=== PATIENT | male | born 1970 | race Caucasian/White ===

== ENCOUNTER 2018-06-27 02:02 | Observation (INO) | payer SELFPAY ==
[2018-06-27] MEDS ORDERED: Nitroglycerin 2% Ointment 1 INCH/1 GM Packet ONE (02:37)
[2018-06-27] MEDS ORDERED: Labetalol HCl 100 MG/20 ML VIAL ONE ×2 (02:42→03:18)
--- NOTE | 2018-06-27 03:34 | PDOC.FPRHP ---
- History of Present Illness Chief Complaint: headache, chest pain, high blood pressure History of Present Illness: 48 yo M transfer from [facility] ED with PMH of HTN, DM2, and noncompliance on multiple anti-hypertensives presents for headache, chest pain, and elevated BP. Pt reports he has not been taking his medications because he has difficulty affording them, and was saving them for an "as needed" basis. He reports he checked his BP 2 days ago at the store, and it was elevated to 225/ 170. He then reports he checked it at home, and his home BP was 228/130. He developed a headache yesterday afternoon while kids were fighting that started in his posterior head, then moved to his presybeterian and behind his eyes. Soon after he had about a 30 minute episode of left sided chest pressure that slowly radiated to his shoulder while sitting down around 4 PM. He was concerned, so he went to the ED for evaluation. Headache and chest pain are now resolved. Reports recent episode of loose stools (his normal), recent weight loss of 25 lbs due to diet changes, and chronic low back pain. SCED: SBP initially 230s. EKG NSR, CT head neg and CXR no acute process, official reads pending. Trop neg. ED: nitro bid, labetolol. 2nd Trop neg. Headache and chest pain resolved. BP 173 /100. - Allergies/Adverse Reactions Allergies Allergy/AdvReac Type Severity Reaction Status Date / Time No Known Drug Allergies Allergy Verified 06/27/18 04:29 - Home Medications Medication Instructions Recorded Confirmed Type Acetaminophen [Tylenol Regular 650 mg PO Q6H PRN tab 06/27/18 Rx Strength] Amlodipine [Norvasc] 10 mg PO DAILY #30 tab 06/27/18 Rx Atorvastatin Calcium 40 mg PO QPM 06/27/18 06/27/18 History DULoxetine [Cymbalta] 60 mg PO DAILY 06/27/18 06/27/18 History Gemfibrozil 600 mg PO BID-AC 06/27/18 06/27/18 History Labetalol HCl 200 mg PO BID 06/27/18 06/27/18 History Lisinopril [Prinivil] 20 mg PO QPM #30 tablet 06/27/18 Rx Lisinopril/Hydrochlorothiazide 1 tablet PO QAM 06/27/18 06/27/18 History [Lisinopril-Hctz 20-25 mg Tab] Omeprazole 40 mg PO DAILY 06/27/18 06/27/18 History metFORMIN [Glucophage] 1,000 mg PO BID-WM #60 tab 06/27/18 Rx - History PMHx: DM2, HTN, GERD, HLD; hx of pericarditis and pancreatitis (x2) PSHx: appy, cholecystectomy, R knee, neck, and low back surgery FHx: ME in pGF; melanoma in mother; mGF liver cancer, mGM cancer unknown type Social: smoked 2 ppd for 11 yrs, now last 6 mos 1/2 ppd. 22 PY hx; alcohol < once monthly, however twice yearly he binge drinks; denies drug use. Recent stressors include a divorce/separation, moving locations. - Review of Systems General: reports: weight/appetite/sleep changes (weight loss over last couple months, due to diet changes). denies: fever/chills, night sweats Eyes: reports: eye pain. denies: vision changes ENT: denies: nasal congestion, rhinorrhea Respiratory: denies: cough, congestion, shortness of breath Cardiovascular: reports: chest pain. denies: palpitation Gastrointestinal: denies: nausea, vomiting, diarrhea, constipation, abdominal pain, GI bleeding Genitourinary: denies: dysuria, other (hematuria) Skin: denies: rashes, lesions Musculoskeletal: reports: pain (chronic back pain) Neurological: reports: numbness (reports maybe some face tingling with the headache). denies: weakness Psychological: denies: anxiety, depression - Vital signs BP: [173/100] HR: [68] RR: [12] Tmax: [97.7] Pox: [97]% on [RA] Wt: [98.3 kg] - Physical Exam Constitutional: NAD, awake, alert and oriented HEENT: normocephalic and atraumatic, PERRLA, EOMI, conjunctiva clear, grossly normal hearing, MMM, oropharynx clear Neck: supple, no LAD Chest: no-tender to palpation, no lesions Heart: RRR, normal S1/S2, pulses present, no edema, other (1/6 systolic murmur, heard loudest at the apex) Lungs: CTAB, no respiratory distress, good air movement, no wheezing Abdomen: soft, non-tender, bowel sounds present, no masses/distention Musculoskeletal: normal structure, normal tone Neurological: no focal deficit, CN II-XII intact, normal sensation Skin: no rash/lesions, good turgor, capillary refill <2 seconds Heme/Lymphatic: no unusual bruising or bleeding, no purpura Psychiatric: normal mood and affect, intact recent and remote memory FMR H&P: Results - Labs Result Diagrams: 06/27/18 07:17 - EKG Interpretation EKG: NSR - Radiology Interpretation Chest x-ray Status: image reviewed by me Additional comment: no acute process. official read pending. CT scan - head Status: image reviewed by me Additional comment: No acute bleeds. official read pending. FMR H&P: A/P - Problem List (1) Noncompliance Current Visit: Yes Status: Acute Code(s): Z91.19 - PATIENT'S NONCOMPLIANCE W OTH MEDICAL TREATMENT AND REGIMEN (2) Hypertensive urgency Current Visit: Yes Status: Acute Code(s): I16.0 - HYPERTENSIVE URGENCY (3) GERD (gastroesophageal reflux disease) Current Visit: Yes Status: Chronic Code(s): K21.9 - GASTRO-ESOPHAGEAL REFLUX DISEASE WITHOUT ESOPHAGITIS (4) DM2 (diabetes mellitus, type 2) Current Visit: Yes Status: Chronic (5) HLD (hyperlipidemia) Current Visit: Yes Status: Chronic Code(s): E78.5 - HYPERLIPIDEMIA, UNSPECIFIED (6) HTN (hypertension) Current Visit: Yes Status: Chronic Code(s): I10 - ESSENTIAL (PRIMARY) HYPERTENSION - Plan Hypertensive Urgency, improving -Last BP 173/100, down from 230s. -CT head neg, CXR no acute process. Official reads pending. -Headache/ chest pain resolved. -Headache sounded like typical tension headache. May be secondary to stressors, reports kids were fighting at onset. -Chest pain atypical, as nonexertional. Trop neg x2. May be secondary to stressors. -restarted home medications, held labetolol as just received IV dose in ED -Pt interested in following up at [facility], where he can get cheaper medications. Reports he has difficulty affording his meds, which cost him about $125/month. -Case management consulted DM2 -noncompliant with medications -restart home metformin -SSI -A1C pending Chronic low back pain -1x dose Flexeril Potential for drug abuse -Pt asked for soma/norco by name -UDS pending HLD -restarted home atorvastatin and gemfibrozil GERD -restart home omeprazole Medication Noncompliance Dispo: admit to tele obs Diet: HH DVT ppx: SCDs GI ppx: home omeprazole PCP: Dr. Dominick Biggs in [place]. Pt may want to establish somewhere closer , he is undecided. FMR H&P: Upper Level - Pertinent history 48 y/o M with hx/o uncontroled HTN, DM2, HLD presents from [facility] for HTN and chest pain. Hypertension was as high as 23 range systolic and initially presented with TREVINO and photophobia. Chest pain described as left sided radiating into shoulder, sharp and has improved. Associated photophobia and TREVINO resolved. Pt has not been taking BP medications 2/2 cost and has a longstanding history of HTN, even undergoing at least a partial secondary w/u in 2015 per patient. He also admit s to chronic back pain which is hurting a the moment. Pt has been given antihypertensive medications which have improved pressures to 175 systolic at time of exam, just prior to Labetaol administration. He has recently moved to [place] and not followed closely with a PCP. currently complains of back pain and mild L chest pain. Troponins have been neg x2 and no EKG changes at OSH. - Pertinent findings Toponins neg x2, no EKG changes. CXR unremarkable. - Plan Date/Time: 06/27/18 0330 IDaniel, have evaluated this patient and agree with findings/plan as outlined by consumer insights intern resident. Pertinent changes/additions are listed here. 48 y/o F admitted for hypertensive urgency and BP control 1. Hypertensive Urgency: has improved. Will resume home medications and monitor closely. Expect this to be therapeutic as he has not been taking them. counseling provided that medications should be used as preventative instead of as needed use. Labetalol given IV and plan to restart PO home dose tomorrow. Also likely contributing to his chest pain. 2. Atypical chest pain - trops negx2, no EKG changes. S/p nitro patch. POssibly 2/2 HTN or consider additional etiologies. 3. Systolic Heart Murmur: Consider evaluation with ECHO, but ok to pursue this in the outpatient setting in my opinion as he does not seem to be having symptoms directly related to a slight murmur. 4. HLD - Consider statin use given risk factors. Calculate ASCVD risk once BP normalizes. Also consider FLP in vs outpatient. 5. DM2 - Presumed this is not under control either. Control with SSI and resume Metformin. Order A1c. 6. GERD - No acute issues; consider as cause for chest pain. 7. Chronic Back Pain - Muscle relaxer, states pain is same as it usually is. Full code, Dispo discharge in 1-2days on BP mediations Addendum - Attending - Attending Attestation Date/Time: 06/27/18 [id number] I personally evaluated the patient and discussed the management with Dr. Keith and Dr. Bautista I agree with the History, Examination, Assessment and Plan documented above with any addition or exceptions noted below. 48 yo male with history of HTN, HLD, DM, and GERD presents for evaluation of chest pain. Patient reports chest pain. Pressure type. Mid chest. At rest. Resolved with ER medications. Headache to posterior area. Progressed to frontal region. Improved with ER meds. Mild, dull headache this morning. No return of chest pain. VS reviewed. Labs reviewed. Imaging reviewed. Agree with PE documented as above. 1. HTN urgency: BP down by 25%. Continue to slowly adjust BP meds for control. Longstanding HTN unsure compliance and control as outpatient. 2. Chest pain: Likely angina due to circumstances. Stress this AM. ECHO this afternoon. 3. HLD: Not at goal. Increase atorvastatin to 80 mg. Increase secondary agent as tolerated. Lifestyle changes. Needs PCP. 4. DM: A1c 6.6. Continue metformin. 5. GERD: Asymptomatic. 6. Financial issues: All meds from $4 list. Needs PCP. 7. Depression: On SSRI. 8. Nonprofessional tattoos: Check hep C [place]
[2018-06-27] MEDS ORDERED: hydrALAZINE 20 MG/ML VIAL SLOW IVP PRN ×2 (03:41→04:20)
[2018-06-27] MEDS ORDERED: Dextrose 5% in Water 1,000 ML IV PRN ×2 (03:44→04:20)
[2018-06-27] MEDS ORDERED: HumaLOG 300 UNITS/3 ML VIAL SC PRN ×2 (03:44→04:20)
[2018-06-27] MEDS ORDERED: Dextrose 50% Abboject 50 ML SYRINGE SLOW IVP PRN ×2 (03:44→04:20)
[2018-06-27] MEDS ORDERED: Cyclobenzaprine 10 MG TAB PO SCH ×2 (03:45→04:30)
[2018-06-27] MEDS ORDERED: Lisinopril/Hydrochlorothiazide 20/25 mg Tablet PO SCH ×4 (04:00→09:00)
[2018-06-27] MEDS ORDERED: Amlodipine 10 MG TAB PO SCH ×3 (04:00→09:00)
[2018-06-27 04:11] VITALS: BMI 28.3
[2018-06-27] MEDS ORDERED: Acetaminophen 325 MG TAB PO PRN (04:34)
[2018-06-27] MEDS ORDERED: Ibuprofen 800 MG TAB PO PRN (04:34)
[2018-06-27 06:58] LABS: Amphetamine Not Detected (NotDetected); Barbiturates Screen Not Detected (NotDetected); Benzodiazepine Screen Not Detected (NotDetected); Cocaine Metabolite Screen Not Detected (NotDetected); Medtox Control Line Valid? VALID (VALID); Medtox Reader # READER 4; Methadone Not Detected (NotDetected); Methamphetamine Not Detected (NotDetected); Opiate Screen Not Detected (NotDetected); Oxycodone Screen Not Detected (NotDetected); Phencyclidine (PCP) Not Detected (NotDetected); THC/Cannabinoid Screen Not Detected (NotDetected); Tricyclic Screen Not Detected (NotDetected)
[2018-06-27] MEDS ORDERED: Gemfibrozil 600 MG TAB PO SCH (07:30)
[2018-06-27 07:47] LABS: Hemoglobin A1c 6.6 % (4.0-6.0)
[2018-06-27 08:00] LABS: Anion Gap 16 mmol/L (10-20); BUN (Urea Nitrogen) 10 mg/dL (8.9-20.6); Calc. Creatinine Clearance 100 mL/min (70-130); Calcium 9.7 mg/dL (7.8-10.44); Carbon Dioxide 24 mmol/L (22-29); Chloride 98 mmol/L (98-107); Cholesterol 168 mg/dl (< 200 Desired); Estimated GFR-MDRD 61; Glucose 262 mg/dL (70-105); HDL Cholesterol 24 mg/dL (>60 Neg Risk); Potassium 3.2 mmol/L (3.5-5.1); Sodium 135 mmol/L (136-145); Triglycerides 584 mg/dL (Less than 150)
[2018-06-27] MEDS ORDERED: metFORMIN 500 MG TAB PO SCH ×2 (08:00)
[2018-06-27] MEDS: Gemfibrozil 600 MG TAB PO SCH ×2 (08:51→17:00)
[2018-06-27] MEDS: metFORMIN 500 MG TAB PO SCH ×2 (08:51→17:00)
[2018-06-27] MEDS ORDERED: DULoxetine 60 MG CAP PO SCH ×2 (09:00)
--- NOTE | 2018-06-27 13:47 | NM ---
CARDIAC SPECT: CLINICAL HISTORY: 48-year-old male with chest pain, hypertension, diabetes, smoker, and dyslipidemia. TECHNIQUE: A myocardial perfusion scan was performed using the single isotope one day protocol with technetium-9 9m sestamibi. 10 mCi were injected intravenously for the rest exam followed by 29 mCi for the stress exam. Pharmacologic stress with Adenosine was monitored and interpreted by Dr. Church. FINDINGS: Fairly homogeneous tracer distribution is seen in the myocardial segments on stress and rest images w ithout fixed or reversible defects. GATED SPECT LVEF: 38%. WALL MOTION EXAM: Global hypokinesis. IMPRESSION: No evidence of reversible ischemia. POS: TPC
[2018-06-27] MEDS ORDERED: ADENOSINE 60 MG/20 ML VIAL ONE (14:17)
[2018-06-27 15:34] VITALS: BP 162/88; TEMP 97.6
[2018-06-27] MEDS ORDERED: Potassium Chloride 20 MEQ TAB PO SCH (16:45)
[2018-06-27] MEDS ORDERED: Lisinopril 20 MG TAB PO SCH ×2 (21:00)
[2018-06-27] MEDS ORDERED: Atorvastatin Calcium 40 MG TAB PO SCH ×2 (21:00)
--- NOTE | 2018-06-27 23:54 | CON ---
DATE OF CONSULTATION: 06/27/2018 REASON FOR CONSULTATION: Chest pain. HISTORY OF PRESENT ILLNESS: Mr. Samuels is a 48-year-old gentleman, who said he recently moved to this area. He has a history of severely elevated blood pressures, but he said he had not refilled any of his blood pressure medicines and was not taking any of his medication. He came to the emergency room with a headache and blood pressure 225/170, came here, got his blood pressure down, began to feel better, and got evaluated that will be outlined below. He states he did have some vague discomfort in his chest when the blood pressure was extremely high. PAST MEDICAL HISTORY: 1. Uncontrolled hypertension. 2. Diabetes. 3. Smoking. 4. Hyperlipidemia, mixed. REVIEW OF SYSTEMS: CONSTITUTIONAL: No significant weight gain or loss. VISION: No changes. HEARING: No changes. PULMONARY: No cough or wheezing. GASTROINTESTINAL: No nausea, vomiting, or diarrhea. SKIN: No rashes. NEUROLOGIC: No unilateral weakness or numbness. PSYCHIATRIC: No unusual depression or anxiety. PHYSICAL EXAMINATION: VITAL SIGNS: The patient's blood pressure 162/88, pulse 64 and regular. LUNGS: Clear. CARDIAC: Normal S1, normal S2. ABDOMEN: Soft and nontender. EXTREMITIES: No clubbing or cyanosis. There is no edema. Good peripheral pulses. PERTINENT LABORATORY DATA: Glucose 214. Hemoglobin A1c 6.6. Triglycerides 584, cholesterol 168, LDL cannot be calculated. Potassium is 3.2. The nuclear medicine stress imaging showed no evidence of any ischemia, but it was thought to have a depressed left ventricular function with global hypokinesis. The echocardiogram through very good quality study shows normal left ventricular function with moderate left ventricular hypertrophy. I believe the ejection fraction in the nuclear imaging is artifactually low. The EKG, normal sinus rhythm, small Q-wave in lead 3, some nonspecific ST and T-wave changes. ASSESSMENT: 1. Severe hypertension with hypertensive heart disease with left ventricular hypertrophy. 2. Left atrial enlargement, likely related to chronic hypertension, uncontrolled. 3. Diabetes. 4. Continued smoking. 5. Hyperlipidemia, mixed. 6. Noncompliance of medication. I explained to the patient that he has really essentially every risk for coronary artery disease which is modifiable including hypertension, diabetes, smoking, hypercholesterolemia. I expressed the extreme importance of taking medicines as routine basis. The patient does not have any evidence of focal ischemia and the ejection fraction is normal on echocardiogram. As mentioned, the patient was SEVERELY HYPERTENSIVE on admission. He said he could not afford the medication. Discussed the [employer] marlene, which may help him get better drug prices and find more affordable locations. His family member downloaded this marlene while we were talking, said they would pursue this. At this time, medical therapy is appropriate. If he continues to have angina with blood pressures, catheterization could be considered, but at this point arteriogram would not appear to lower his risk of adverse events, especially in view of his history of noncompliance. The patient needs to demonstrate compliance with medication as initial strategy. Certainly it is regardless of our therapy, if his blood pressure remains in this range along with smoking, diabetes, hyperlipidemia, his prognosis will remain poor. Hopefully, the patient will make these changes. the critical importance of making these changes. Job ID: [id number]
--- NOTE | 2018-06-28 05:45 | DIS ---
DATE OF ADMISSION: 06/27/2018 DATE OF DISCHARGE: 06/27/2018 RESIDENT: Ronaldo Sinclair MD. CONSULTS: 1. [facility] on 06/27/2018. 2. Case Management on 06/27/2018. PROCEDURES: 1. Nuclear medicine stress test on 06/27/2018, gated SPECT LVEF 38%, wall motion exam, global hypokinesis. Impression, no evidence for reversible ischemia. 2. Echocardiogram on 06/27/2018, summary; left ventricular size is normal. Ejection fraction is visually estimated at 55% to 60%. There is mild concentric left ventricular hypertrophy. The left atrium is [id number] dilated. Mild mitral regurgitation is present. Structurally normal aortic valve with no significant stenosis or regurgitation. Trace tricuspid regurgitation. PRIMARY DIAGNOSES: 1. Hypertensive urgency. 2. Atypical chest pain. SECONDARY DIAGNOSES: 1. Hypertension. 2. Hyperlipidemia. 3. Type 2 diabetes. 4. Gastroesophageal reflux disease. 5. Medication noncompliance. DISCHARGE MEDICATIONS: Resume home medications includin. Omeprazole 40 mg p.o. daily. 2. Gemfibrozil 600 mg p.o. b.i.d. a.c. 3. Duloxetine 60 mg p.o. daily. 4. Atorvastatin 40 mg p.o. q.p.m. 5. Labetalol HCL 200 mg p.o. b.i.d. New home medications include: 1. Acetaminophen 650 mg q.6 hours p.r.n. 2. Amlodipine 10 mg p.o. daily. 3. Lisinopril/hydrochlorothiazide 20/12.5 one tablet p.o. q.p.m. 4. Metformin 1000 mg p.o. b.i.d. with meals. HISTORY OF PRESENT ILLNESS/HOSPITAL COURSE: Mr. Carlos Samuels Junior is a 48-year-old male with past medical history of hypertension, hyperlipidemia, and type 2 diabetes, who was transferred from [facility] to [place] for chest pain, headache, and elevated blood pressures. The patient reports he had not been taking his medications because he had difficulty affording those and will take them on an as-needed basis. He reports he checked his blood pressure 2 days ago at the store and it was 225/170. He also reported that he checks it at home, his blood pressure was 228/130 at that time. He developed a headache yesterday afternoon, which started in the posterior aspect of his head and moved to his temples and behind his eyes. Soon after that, he had about a 30-minute episode of left-sided chest pressure that radiated to his shoulder while sitting down on 4:00 p.m. He was concerned, so he went to the ED. He states that headache and chest pain were resolved upon admission. In [facility] ED, his systolic blood pressure was initially in the 230s. EKG showed normal sinus rhythm. CT of the head and chest x-ray showed no acute process. Initial troponin was negative. In the ED, he had nitroglycerin, labetalol and second troponin was negative. Blood pressure at [place] was 173/100, heart rate 68, respiratory rate 12, temperature 97.7, pulse ox 97% on room air. Current weight was 98.3 kg. Initial physical exam was significant for 1/6 systolic murmur heard loudest at the apex. Initial labs were sodium 135, potassium 3.2, chloride 98, bicarbonate 24, BUN 10, creatinine 1.27, glucose 262. EKG showed normal sinus rhythm with no ST changes. Chest x-ray showed no acute process. CT of the head showed no acute bleeds. The patient was admitted for hypertensive urgency. Home medications were resumed. Nuclear medicine stress test and echo were ordered. Troponins were negative x3. Results of nuclear medicine stress test and echo were as above. The stress test showed global hypokinesia. Dr. Church, who read the echo was consulted, and we discussed the case. Dr. Church felt that the stress test was not accurate. He stated that during the echo there was normal cardiac wall motion. There was no global hypokinesia and that the ejection fraction was actually around 55% to 60%, not the 38% that was shown on stress test. Dr. Church cleared the patient for discharge with instructions for close followup with better compliance of home blood pressure medications. The patient was discharged on 06/27/2018 with those instructions. DISPOSITION: Stable. The patient should do well if he is compliant with his home blood pressure medications and if he has close followup with primary care provider. DISCHARGE INSTRUCTIONS: 1. Location: Home. 2. Diet: Heart healthy and diabetic diet. 3. Activity: As tolerated. 4. Follow up with primary care provider within 1 week. Job ID: [id number]
[2018-06-28] MEDS ORDERED: Amlodipine 10 MG TAB PO SCH (09:00)
[2018-06-28] MEDS ORDERED: Lisinopril/Hydrochlorothiazide 20/25 mg Tablet PO SCH (09:00)
[2018-06-28] MEDS ORDERED: Aspirin 81 mg Enteric Coated Tablet PO SCH (09:00)
== END 2018-06-27 18:45 | disposition home or self-care (01) ==
LOC: ERS 02:02 → 2SW 02:51 → ERS 03:55
PROVIDERS: ADMIT Family Medicine; ATTEND Family Medicine
DX: I16.0 Hypertensive urgency (principal); R07.89 Other chest pain; E11.9 Type 2 diabetes mellitus without complications; K21.9 Gastro-esophageal reflux disease without esophagitis; F17.210 Nicotine dependence, cigarettes, uncomplicated; G89.29 Other chronic pain; M54.5 Low back pain; F32.9 Major depressive disorder, single episode, unspecified; E78.2 Mixed hyperlipidemia; I11.9 Hypertensive heart disease without heart failure; Z79.84 Long term (current) use of oral hypoglycemic drugs; Z79.899 Other long term (current) drug therapy; Z91.14 Patient's other noncompliance with medication regimen
CPT/HCPCS: 36415; 36416; 78452; 80061; 80306; 83036; 93005; 93017; 93306; 96374; A9500; G0378; J0153